=== PATIENT | female | born 2005 | race Caucasian/White ===

== ENCOUNTER 2023-11-21 21:40 | Emergency (ER) | payer MEDICAID, OTHER ==
[~2023-11-21] VITALS: Ht 160 cm; Wt 72.6 kg
[2023-11-21 21:59] VITALS: BP_SYST 115; PULSE 77; RESP 18; TEMP 98.1; O2SAT 98
[2023-11-22] MEDS: IBUPROFEN 600 MG TABLET PO ONE (01:53)
[2023-11-22] MEDS ORDERED: NAPR-1172 PO (02:17)
[2023-11-22] MEDS ORDERED: TRAM50TA2 PO (06:09)
[2023-11-22] MEDS ORDERED: NAPR-690 PO (06:09)
== END 2023-11-22 02:25 | disposition home or self-care (01) ==
LOC: SED 21:40
DX: S82.854A Nondisplaced trimalleolar fracture of right lower leg, initial encounter for closed fracture (principal); W22.8XXA Striking against or struck by other objects, initial encounter; Y93.31 Activity, mountain climbing, rock climbing and wall climbing; Y92.89 Other specified places as the place of occurrence of the external cause; Y99.8 Other external cause status
CPT/HCPCS: 99283